=== PATIENT | male | born 1985 | race Caucasian/White ===

== ENCOUNTER 2017-11-09 18:36 | Emergency (ER) | payer SELFPAY ==
[~2017-11-09 18:36] MED LIST changes: -ASPI-1471 PO; -OLAN2.5T22 PO
--- NOTE | 2017-11-09 18:43 | ER Report ---
History and Physical Time Seen By MD: 18:43 (HIGINIO KNUTSON) HPI/ROS CHIEF COMPLAINT: Seizure, left leg numbness, left shoulder pain HISTORY OF PRESENT ILLNESS: 31-year-old male patient presents to emergency room with complaint of a seizure, left leg numbness, left shoulder pain. Patient states that he was at the [facility] home center where he is an inmate. He was walking and fell forward landing onto his left shoulder. He then had a seizure. Patient does not have a previous history of a seizure. Patient states that he felt like he was asleep for a long period of time and when he woke up he been having weird dreams. He states he has significant amounts of pain to the left shoulder. He states that he feels like his shoulder is burning. He states that he has pins and needles to approximately mid upper leg on the left side and then he has no sensation further down. He states that he takes Zyprexa for anxiety, he takes no other medications. He states that a few years ago he had a small stroke which resulted in him being in the hospital for approximately one week prior to discharge. He states that he was discharged with recommendation to take aspirin. He states that he does not do that. REVIEW OF SYSTEMS: Respiratory: No cough, no dyspnea. Cardiovascular: No chest pain, no palpitations. Gastrointestinal: No vomiting, no abdominal pain. Musculoskeletal: Patient states he has significant had of back pain. (HIGINIO KNUTSON) Allergies: Coded Allergies: codeine (Verified Adverse Reaction, Mild, vomiting, 10/14/16) Home Meds Reported Medications Aspirin (ASPIR 81) 81 Mg Tablet.dr, 81 MG PO QDAY, TAB 11/09/17 Olanzapine (ZYPREXA) 2.5 Mg Tablet, 2.5 MG PO QDAY 11/09/17 Past Medical/Surgical History Patient has a past medical history of CVA, migraines, chronic abdominal pain, reflux, finger fracture, substance abuse, alcohol abuse, ADHD, anxiety, depression. Patient has surgical history of appendectomy. Patient has a family medical history of diabetes, psychiatric problems. (HIGINIO KNUTSON) Reviewed Nurses Notes: Yes (HIGINIO KNUTSON) Hx Smoking: Yes (1/2 PPD) Smoking Status: Current: Every Day Smoker Exposure to Second Hand Smoke?: Yes Hx Substance Use Disorder: Yes (HISTORY MARIJUANNA, COCAIN, METHAMPHETAMINE USE. DENIES RECENT USAGE) Hx Alcohol Use: Yes (IN PAST, non currently) (HIGINIO KNUTSON) Constitutional Vital Sign - Last 24 Hours 11/09/17 11/09/17 11/09/17 11/09/17 18:38 19:00 19:15 19:30 Temp 98.7 Pulse 89 82 77 82 Resp 18 15 B/P (MAP) 129/68 127/85 (99) Pulse Ox 96 96 94 95 O2 Delivery Room Air 11/09/17 11/09/17 11/09/17 11/09/17 19:45 20:15 20:30 20:35 Pulse 77 81 74 ??? B/P (MAP) 139/128 (132) 11/09/17 11/09/17 11/09/17 11/09/17 22:20 22:30 22:35 22:50 Pulse ? B/P (MAP) ???/??? (1665) 11/09/17 11/09/17 11/09/17 11/09/17 23:00 23:05 23:20 23:29 Pulse ? B/P (MAP) ???/??? (1665) 136/79 (98) 11/09/17 11/09/17 11/10/17 23:35 23:50 00:08 Pulse 83 86 85 Resp 16 B/P (MAP) 132/85 (101) Pulse Ox 93 93 92 O2 Delivery Room Air Intake and Output 11/09/17 11/09/17 11/10/17 15:00 23:00 07:00 Intake Total 1000 ml Balance 1000 ml (SANDHYA SHEA MD) Physical Exam General Appearance: The patient is alert, has no immediate need for airway protection and no current signs of toxicity. Respiratory: Chest is non tender, lungs are clear to auscultation. Cardiac: regular rate and rhythm Gastrointestinal: Abdomen is soft and non tender, no masses, bowel sounds normal. Musculoskeletal: Neck: Neck is supple and non tender. Extremities have full range of motion and are non tender. Patient denied any sensation to the foot. Patient had pain to the left shoulder, no bruising or swelling noted. Skin: No rashes or lesions. Neuro: Patient is alert and oriented 4, cranial nerves II through XII grossly intact, patient had some weakness in the left arm, weakness in the left foot and leg. DIFFERENTIAL DIAGNOSIS: After history and physical exam differential diagnosis was considered for stroke, seizure, malingering. (HIGINIO KNUTSON) Medical Decision Making Data Points Result Diagram: 11/09/17191711/09/171917 Laboratory Hematology Test 11/09/17 19:18 Red Blood Count 4.37 M/uL (4.00-5.60) Mean Corpuscular Volume 91.1 fL (80.0-96.0) Mean Corpuscular Hemoglobin 31.5 pg (26.0-33.0) Mean Corpuscular Hemoglobin Concent 34.5 g/dL (32.0-36.0) Red Cell Distribution Width 14.4 % (11.5-14.5) Mean Platelet Volume 8.7 fL (7.2-11.1) Neutrophils (%) (Auto) 46.3 % (39.4-72.5) Lymphocytes (%) (Auto) 38.4 % (17.6-49.6) Monocytes (%) (Auto) 6.6 % (4.1-12.4) Eosinophils (%) (Auto) 7.4 % (0.4-6.7) Basophils (%) (Auto) 1.3 % (0.3-1.4) Nucleated RBC Relative Count (auto) 0.1 /100WBC Neutrophils # (Auto) 4.6 K/uL (2.0-7.4) Lymphocytes # (Auto) 3.8 K/uL (1.3-3.6) Monocytes # (Auto) 0.7 K/uL (0.3-1.0) Eosinophils # (Auto) 0.7 K/uL (0.0-0.5) Basophils # (Auto) 0.1 K/uL (0.0-0.1) Nucleated RBC Absolute Count (auto) 0.01 K/uL Sodium Level 145 mmol/L (137-145) Potassium Level 4.2 mmol/L (3.5-5.0) Chloride Level 103 mmol/L (98-107) Carbon Dioxide Level 30 mmol/L (22-30) Blood Urea Nitrogen 18 mg/dl (9-21) Creatinine 1.30 mg/dl (0.66-1.25) Glomerular Filtration Rate Calc > 60.0 Random Glucose 89 mg/dl (75-110) Calcium Level 9.2 mg/dl (8.4-10.2) Total Bilirubin 0.2 mg/dl (0.2-1.3) Aspartate Amino Transf (AST/SGOT) 32 U/L (0-35) Alanine Aminotransferase (ALT/SGPT) 23 U/L (0-56) Alkaline Phosphatase 38 U/L (0-126) Total Protein 7.3 g/dl (6.3-8.2) Albumin 4.1 g/dl (3.5-5.0) Chemistry Test 11/09/17 19:18 White Blood Count 9.9 k/uL (4.5-11.0) Red Blood Count 4.37 M/uL (4.00-5.60) Hemoglobin 13.7 g/dL (14.0-18.0) Hematocrit 39.8 % (42.0-52.0) Mean Corpuscular Volume 91.1 fL (80.0-96.0) Mean Corpuscular Hemoglobin 31.5 pg (26.0-33.0) Mean Corpuscular Hemoglobin Concent 34.5 g/dL (32.0-36.0) Red Cell Distribution Width 14.4 % (11.5-14.5) Platelet Count 272 K/uL (150-450) Mean Platelet Volume 8.7 fL (7.2-11.1) Neutrophils (%) (Auto) 46.3 % (39.4-72.5) Lymphocytes (%) (Auto) 38.4 % (17.6-49.6) Monocytes (%) (Auto) 6.6 % (4.1-12.4) Eosinophils (%) (Auto) 7.4 % (0.4-6.7) Basophils (%) (Auto) 1.3 % (0.3-1.4) Nucleated RBC Relative Count (auto) 0.1 /100WBC Neutrophils # (Auto) 4.6 K/uL (2.0-7.4) Lymphocytes # (Auto) 3.8 K/uL (1.3-3.6) Monocytes # (Auto) 0.7 K/uL (0.3-1.0) Eosinophils # (Auto) 0.7 K/uL (0.0-0.5) Basophils # (Auto) 0.1 K/uL (0.0-0.1) Nucleated RBC Absolute Count (auto) 0.01 K/uL Glomerular Filtration Rate Calc > 60.0 Calcium Level 9.2 mg/dl (8.4-10.2) Total Bilirubin 0.2 mg/dl (0.2-1.3) Aspartate Amino Transf (AST/SGOT) 32 U/L (0-35) Alanine Aminotransferase (ALT/SGPT) 23 U/L (0-56) Alkaline Phosphatase 38 U/L (0-126) Total Protein 7.3 g/dl (6.3-8.2) Albumin 4.1 g/dl (3.5-5.0) (SANDHYA SHEA MD) EKG/Imaging Imaging CT Head without contrast Indication: Weakness and numbness to left side. Fall. Comparison: 10/27/2015. Technique: Axial CT images were obtained through the brain from the skull base to the vertex without administration of IV contrast. Reformatted coronal and sagittal images were also obtained. One of the following dose optimization techniques was utilized in the performance of this exam: automated exposure control; adjustment of the mA and/or kV according to the patient's size; or use of an iterative reconstruction technique. Specific details can be referenced in the facility's radiology CT exam operational policy. Findings: No evidence of mass, mass effect, or midline shift. No acute intracranial hemorrhage or acute territorial infarction. No extra-axial fluid collection or hydrocephalus. No abnormal density. Becerra/white matter differentiation appears normal. Bony structures show no fractures or lesions. The visualized paranasal sinuses and mastoid air cells are clear. IMPRESSION: 1. No acute intracranial abnormality. Report Dictated By: Hugh Alexis at 11/09/2017 7:56 PM Report E-Signed By: Hugh Alexis at 11/09/2017 8:00 PM SHOULDER MIN 2 VIEWS LEFT Indication: Left shoulder pain after fall. Comparison: Unavailable Findings: 2 views of the left shoulder. No discrete fracture identified. However at the humeral neck there is some faint sclerosis without discrete fracture line. This is not well seen on the scapular Y view. No indication of dislocation. No bony l esions. AC joint appears intact without significant degenerative changes. Soft tissues unremarkable. IMPRESSION: 1. The femoral neck area does show a faint sclerosis without discrete fracture line. This not seen on the scapular Y view. This may represent degenerative changes. On this limited exam cannot exclude a nondisplaced fracture. Suggest correlation to area pain. If there still clinical concern, a dedicated 4 view of the left shoulder x-ray is suggested. I called report to HIGINIO KNUTSON at 11/09/2017 8:20 PM. Report Dictated By: Hugh Alexis at 11/09/2017 7:50 PM Report E-Signed By: Hugh Alexis at 11/09/2017 8:21 PM INDICATION: repeat, 4 views needed possible non-displaced fracture EXAM DATE: 11/09/2017 8:21 PM COMPARISON: Same-day radiographs. FINDINGS: 4 views of the left shoulder. Mineralization is normal. No acute alignment abnormality or fracture. Moderate osteoarthrosis with osteophyte production near the humeral head neck junction that likely accounts for previously seen sclerotic line. Soft tissues are unremarkable. IMPRESSION: Moderate osteoarthrosis with no acute osseous abnormality of the left shoulder. Report Dictated By: Lázaro Emmanuel MD at 11/09/2017 10:25 PM Report E-Signed By: Lázaro Emmanuel MD at 11/09/2017 10:29 PM (HIGINIO KNUTSON) Imaging EXAMINATION: MRA of the [place] HISTORY: Left-sided weakness. COMPARISON: CT head and brain MRI from 11/09/2017. TECHNIQUE: 3D [id number] angiography was performed in the axial plane on the [place] without IV gadolinium. The exam was tailored for assessment of the [place] only. Only limited sequences were obtained of the rest of the brain. FINDINGS: The exam is limited by patient motion artifact. Carotids: Negative. Anterior/posterior communicating arteries: Patent anterior communicating artery. No definite posterior communicating artery on either side. Anterior cerebral arteries: Negative. Middle cerebral arteries: Negative. Posterior cerebral arteries: Negative. Intracranial vertebral arteries: Left vertebral artery is dominant with a slightly smaller right vertebral artery. Both vertebral arteries contribute to the basilar artery. Basilar artery: Negative. PICA/AICA/SCA: Negative. Non-angiographic Findings: None significant. IMPRESSION: Normal MRA of the [place]. Report Dictated By: Brittaney Calvillo MD at 11/09/2017 11:33 PM EXAMINATION: MRI brain without IV contrast HISTORY: Weakness of left arm and leg. COMPARISON: CT head and head MRA from 11/09/2017. TECHNIQUE: Multi-planar, multi-sequence brain MRI was performed without IV contrast. FINDINGS: Brain volume: Normal. Sagittal midline structures: Normal. Ventricles: Normal. Acute ischemic changes: No diffusion restriction present to suggest acute ischemia. Hemorrhage: No acute hemorrhage or hemosiderin staining. Masses/edema: None. Becerra-white: Negative. White matter: No focal white matter signal abnormality or lesion. Vessels: Normal. Extra-axial: None. Calvarium/scalp: Negative. Skull base: Negative. Visualized sinuses/orbits: Negative. Visualized upper neck: Negative. IMPRESSION: Normal noncontrast brain MRI without intracranial mass lesion, acute infarct or hemorrhage. Report Dictated By: Brittaney Calvillo MD at 11/09/2017 11:28 PM (SANDHYA SHEA MD) ED Course/Re-evaluation ED Course Patient was admitted and examined, history and physical were obtained. The differential diagnoses were considered. On examination patient had strength in the left arm, however did appear to be weaker than the right arm. Extra ocular movements were totally normal. Patient is complaining significant amounts of left shoulder pain in did have tenderness to palpation. An x-ray was done, which radiologist felt he may have some arthritis or a nondisplaced fracture and recommended a 4 view of the shoulder. I was done which was negative for fracture. Patient did receive 4 mg of morphine. He states that did not help with his pain and he received 15 mg of Toradol and 30 mg Norflex. Patient states he still having shoulder pain as well as muscle spasms in his back. A CBC, CMP were done which were negative. A CT scan of the head was done and the patella stroke was initiated. Patient was evaluated by neurologist at [facility]. He did discuss his findings with me. He states that he felt this was very strange and told me that he had looked up records from the patient being evaluated at [place] and the patient refused at that was him. He states that most been his brother. The neurologist found that to be very odd statement. He recommended doing an MRI and MRA of the brain. That was done and while waiting for the res ults I did turn the case over to Dr. Shea. Turned Over 11/09/2017 11:08:01 pm The care of the patient was turned over to Dr. Shea. Higinio WILLSON I authorize my typed signature that I authenticated this report. (HIGINIO KNUTSON) ED Course The patient's MRI and MRA did not show any acute problems. We were able to pull old records from [facility] showing he has had extensive evaluations and had no sign of epilepsy. These seem to be stress related seizures type activity. The recommendation was for psychiatric evaluation at that time. I reviewed this with the patient and he was not very happy with me. He says he needs an MRI of his shoulder. We discussed that he has contusion or strain of the shoulder and he can use Ibuprofen or Tylenol as needed for pain and then follow-up with orthopedic surgery as needed for ongoing pain and they can evaluate later and determine if an MRI is needed. We will be discharging back to the [facility] at this time. Decision to Disposition Date: Nov 09, 2017 Decision to Disposition Time: 23:56 (SANDHYA SHEA MD) Depart Departure Latest Vital Signs Vital Signs Date Time Temp Pulse Resp B/P (MAP) Pulse Ox O2 Delivery O2 Flow Rate FiO2 11/10/17 00:08 85 16 132/85 (101) 92 Room Air 11/09/17 18:38 98.7 (SANDHYA SHEA MD) Impression: Primary Impression: Contracture, left shoulder Additional Impressions: Numbness in left leg Psychogenic nonepileptic seizure Condition: Condition Unchanged Disposition: [facility] TO PRISON/CORRECTIONAL F Patient Instructions: Contusion in Adults (ED), Nonepileptic Seizures (ED) Additional Instructions: You can use Tylenol or Ibuprofen for pain. You will need to follow-up with psychiatry for further evaluation of non- epileptic seizures that are brought on by stress. You can see orthopedic surgery as an outpatient if the shoulder continues to bother you. Problem Qualifiers HIGINIO KNUTSON Nov 09, 2017 18:43 SANDHYA SHEA MD Nov 10, 2017 00:00
[2017-11-09] MEDS ORDERED: ASPI-1471 PO (18:48)
[2017-11-09] MEDS ORDERED: OLAN2.5T22 PO (18:48)
[2017-11-09] MEDS ORDERED: NS(*) 0.9% 1000 ML BAG 1,000 ML IV ONE (18:55)
[2017-11-09] MEDS ORDERED: MORPHINE 4 MG/ML SDV IVP ONE (18:55)
[2017-11-09 19:41] LABS: PLATELET COUNT, AUTOMATED 272 K/uL (150-450)
--- NOTE | 2017-11-09 20:04 | RADIOLOGY IMAGING REPORT ---
FACILITY: [facility] PATIENT NAME: Lázaro Washburn : 1985 MR: [id number] V: [id number] EXAM DATE: ORDERING PHYSICIAN: ANITA KNUTSON TECHNOLOGIST: Location: [facility] Patient: Lázaro Washburn : 1985 Visit/Account:[id number] Date of Sevice: 11/09/2017 CT Head without contrast Indication: Weakness and numbness to left side. Fall. Comparison: 10/27/2015. Technique: Axial CT images were obtained through the brain from the skull base to the vertex without administration of IV contrast. Reformatted coronal and sagittal images were also obtained. One of the following dose optimization techniques was utilized in the performance of this exam: autom ated exposure control; adjustment of the mA and/or kV according to the patient's size; or use of an i terative reconstruction technique. Specific details can be referenced in the facility's radiology CT exam operational policy. Findings: No evidence of mass, mass effect, or midline shift. No acute intracranial hemorrhage or acute territorial infarction. No extra-axial fluid collection or hydrocephalus. No abnormal density. Becerra/white matter differentiat ion appears normal. Bony structures show no fractures or lesions. The visualized paranasal sinuses and mastoid air cells are clear. IMPRESSION: 1. No acute intracranial abnormality. Report Dictated By: Hugh Alexis at 11/09/2017 7:56 PM Report E-Signed By: Hugh Alexis at 11/09/2017 8:00 PM WSN:[id number]
[2017-11-09] MEDS ORDERED: ORPHENADRINE 60MG/2ML INJ IVP ONE (20:20)
[2017-11-09] MEDS ORDERED: KETOROLAC 15 MG/ML VIAL IVP ONE (20:20)
--- NOTE | 2017-11-09 20:24 | RADIOLOGY IMAGING REPORT ---
FACILITY: [facility] PATIENT NAME: Lázaro Washburn : 1985 MR: [id number] V: [id number] EXAM DATE: ORDERING PHYSICIAN: ANITA KNUTSON TECHNOLOGIST: Location: [facility] Patient: Lázaro Washburn : 1985 Visit/Account:[id number] Date of Sevice: 11/09/2017 ADDENDUM #1 There is a mistake in the impression. The first line should read the humeral neck area, not the femor al area. Report Dictated By: Hugh Alexis at 11/09/2017 10:49 PM Report E-Signed By: Hugh Alexis at 11/09/2017 10:50 PM ORIGINAL REPORT SHOULDER MIN 2 VIEWS LEFT Indication: Left shoulder pain after fall. Comparison: Unavailable Findings: 2 views of the left shoulder. No discrete fracture identified. However at the humeral neck there is s ome faint sclerosis without discrete fracture line. This is not well seen on the scapular Y view. No indication of dislocation. No bony lesions. AC joint appears intact without significant degenerative changes. Soft tissues unremarkable. IMPRESSION: 1. The femoral neck area does show a faint sclerosis without discrete fracture line. This not seen on the scapular Y view. This may represent degenerative changes. On this limited exam cannot exclude a nondisplaced fracture. Suggest correlation to area pain. If there still clinical concern, a dedicated 4 view of the left shoulder x-ray is suggested. I called report to ANITA KNUTSON at 11/09/2017 8:20 PM. Report Dictated By: Hugh Alexis at 11/09/2017 7:50 PM Report E-Signed By: Hugh Alexis at 11/09/2017 8:21 PM WSN:[id number]
[2017-11-09] MEDS ORDERED: LORazepam 2 MG/ML VIAL IVP ONE ×2 (21:00→22:30)
[2017-11-09] MEDS ORDERED: KETAMINE HCL-NS 50 MG/5 ML SYR IVP ONE (22:30)
--- NOTE | 2017-11-09 22:32 | RADIOLOGY IMAGING REPORT ---
FACILITY: [facility] PATIENT NAME: Lázaro Washburn : 1985 MR: [id number] V: [id number] EXAM DATE: ORDERING PHYSICIAN: ANITA KNUTSON TECHNOLOGIST: Location: [facility] Patient: Lázaro Washburn : 1985 Visit/Account:[id number] Date of Sevice: 11/09/2017 INDICATION: repeat, 4 views needed possible non-displaced fracture EXAM DATE: 11/09/2017 8:21 PM COMPARISON: Same-day radiographs. FINDINGS: 4 views of the left shoulder. Mineralization is normal. No acute alignment abnormality or fracture. Moderate osteoarthrosis with osteophyte production near the humeral head neck junction that likely a ccounts for previously seen sclerotic line. Soft tissues are unremarkable. IMPRESSION: Moderate osteoarthrosis with no acute osseous abnormality of the left shoulder. Report Dictated By: Lázaro Emmanuel MD at 11/09/2017 10:25 PM Report E-Signed By: Lázaro Emmanuel MD at 11/09/2017 10:29 PM WSN:[id number]
--- NOTE | 2017-11-09 23:41 | RADIOLOGY IMAGING REPORT ---
FACILITY: [facility] PATIENT NAME: Lázaro Washburn : 1985 MR: [id number] V: [id number] EXAM DATE: ORDERING PHYSICIAN: ANITA KNUTSON TECHNOLOGIST: Location: Patient: Lázaro Washburn : 1985 Visit/Account:[id number] Date of Sevice: 11/09/2017 EXAMINATION: MRI brain without IV contrast HISTORY: Weakness of left arm and leg. COMPARISON: CT head and head MRA from 11/09/2017. TECHNIQUE: Multi-planar, multi-sequence brain MRI was performed without IV contrast. FINDINGS: Brain volume: Normal. Sagittal midline structures: Normal. Ventricles: Normal. Acute ischemic changes: No diffusion restriction present to suggest acute ischemia. Hemorrhage: No acute hemorrhage or hemosiderin staining. Masses/edema: None. Becerra-white: Negative. White matter: No focal white matter signal abnormality or lesion. Vessels: Normal. Extra-axial: None. Calvarium/scalp: Negative. Skull base: Negative. Visualized sinuses/orbits: Negative. Visualized upper neck: Negative. IMPRESSION: Normal noncontrast brain MRI without intracranial mass lesion, acute infarct or hemorrhage. Report Dictated By: Brittaney Calvillo MD at 11/09/2017 11:28 PM Report E-Signed By: Brittaney Calvillo MD at 11/09/2017 11:37 PM WSN:[id number]
--- NOTE | 2017-11-09 23:41 | RADIOLOGY IMAGING REPORT ---
FACILITY: [facility] PATIENT NAME: Lázaro Washburn : 1985 MR: [id number] V: [id number] EXAM DATE: ORDERING PHYSICIAN: ANITA KNUTSON TECHNOLOGIST: Location: [facility] Patient: Lázaro Washburn : 1985 Visit/Account:[id number] Date of Sevice: 11/09/2017 EXAMINATION: MRA of the [place] HISTORY: Left-sided weakness. COMPARISON: CT head and brain MRI from 11/09/2017. TECHNIQUE: 3D [id number]-gq-[id number] angiography was performed in the axial plane on the [place] without IV dax olinium. The exam was tailored for assessment of the [place] only. Only limited sequences were [place] of the rest of the brain. FINDINGS: The exam is limited by patient motion artifact. Carotids: Negative. Anterior/posterior communicating arteries: Patent anterior communicating artery. No definite posterio r communicating artery on either side. Anterior cerebral arteries: Negative. Middle cerebral arteries: Negative. Posterior cerebral arteries: Negative. Intracranial vertebral arteries: Left vertebral artery is dominant with a slightly smaller right vert ebral artery. Both vertebral arteries contribute to the basilar artery. Basilar artery: Negative. PICA/AICA/SCA: Negative. Non-angiographic Findings: None significant. IMPRESSION: Normal MRA of the [place]. Report Dictated By: Brittaney Calvillo MD at 11/09/2017 11:33 PM Report E-Signed By: Brittaney Calvillo MD at 11/09/2017 11:37 PM WSN:[id number]
[2017-11-10 00:08] VITALS: BP 132/85
== END 2017-11-10 00:12 ==
LOC: ER 18:46
DX: M24.512 Contracture, left shoulder (principal); R20.0 Anesthesia of skin; G40.409 Other generalized epilepsy and epileptic syndromes, not intractable, without status epilepticus
CPT/HCPCS: 70450; 70544; 70551; 73030; 85025; 96361; 96374; 96375; 99285; J1885; J2060; J2270; J2360; J3490; J7030; 82040; 82247; 82310; 82374; 82435; 82565; 82947; 84075; 84132; 84155; 84295; 84450; 84460; 84520

== ENCOUNTER → 2017-11-09 | Outpatient (CLI) | payer SELFPAY ==
[~2017-11-09] MED LIST: AMPH10TA20 PO; AMPH30TA10 PO; AMPH30TA9 PO; ASPI-1471 PO; BUS10 PO; BUS5 PO; CEP500 PO; CEPH250C37 PO; CIPR-326 PO; CIT20 PO; DIA10 PO; DIA5 PO; DICY10CA62 PO; HYD2 PO; HYDR-3074 PO; HYDR4TAB59 PO; HYDR4TAB75 PO; LOR5 PO; OLAN2.5T22 PO; OMEP40CA45 PO; OMEP40CA79 PO; ONDA4TAB PO; OXYC-763 PO; PER PO; PROM-110 PO; RAN150 PO; SUCR1ORA13 PO; TRAM-420 PO
== END ==
LOC: AMB 18:08
PROVIDERS: ATTEND Nurse Practitioner
DX: R56.9 Unspecified convulsions (principal); R53.81 Other malaise
CPT/HCPCS: A0425; A0427

== ENCOUNTER 2017-11-11 10:45 | Emergency (ER) | payer SELFPAY ==
[2017-11-11 11:15] LABS: PLATELET COUNT, AUTOMATED 264 K/uL (150-450)
[2017-11-11] MEDS ORDERED: ORPHENADRINE 60MG/2ML INJ IM ONE (11:20)
[2017-11-11] MEDS ORDERED: MAGNESIUM SUL/D5W* 1 GM/100 ML 100 ML IVPB ONE (11:20)
--- NOTE | 2017-11-11 11:45 | ER Report ---
History and Physical Time Seen By MD: 11:02 Hx. of Stated Complaint: SEIZURE AT [facility]ED [facility]URSING. HPI/ROS CHIEF COMPLAINT: "Seizure" sent from [facility]. HISTORY OF PRESENT ILLNESS: Patient is a 31-year-old male who is currently incarcerated at [facility]. He is been seen multiple times in multiple centers for "seizure activity". Most recently he was seen in the emergency department here a few days ago for "seizure activity". Through a electronic medical record search we're able to determine that the patient has nonepileptic seizures or "pseudoseizures" this was determined through medical record search I will attach a note from Dr. Woody who saw the patient just a few days ago. ED Course The patient's MRI and MRA did not show any acute problems. We were able to pull old records from [facility] showing he has had extensive evaluations and had no sign of epilepsy. These seem to be stress related seizures type activity. The recommendation was for psychiatric evaluation at that time. I reviewed this with the patient and he was not very happy with me. He says he needs an MRI of his shoulder. We discussed that he has contusion or strain of the shoulder and he can use Ibuprofen or Tylenol as needed for pain and then follow-up with orthopedic surgery as needed for ongoing pain and they can evaluate later and determine if an MRI is needed. We will be discharging back to the [facility] at this time. Decision to Disposition Date: Nov 09, 2017 Decision to Disposition Time: 23:56 (SANDHYA ATKINSON MD) Patient presents today and had shaking well in the emergency department. The shaking was not tonic clonic or "seizure-like". I attempted a sternal rub and the patient had voluntary withdrawal. When the patient came to a few minutes later there is no evidence of a postictal state and the patient recalls hearing what was going on in the room during his episode. REVIEW OF SYSTEMS: Constitutional: No fever, no chills. Eyes: No discharge. ENT: No sore throat. Cardiovascular: No chest pain, no palpitations. Respiratory: No cough, no shortness of breath. Gastrointestinal: No abdominal pain, no vomiting. Genitourinary: No hematuria. Musculoskeletal: Body aches Skin: No rashes. Neurological: No headache. Allergies: Coded Allergies: codeine (Verified Adverse Reaction, Mild, vomiting, 10/14/16) Home Meds Reported Medications Aspirin (ASPIR 81) 81 Mg Tablet.dr, 81 MG PO QDAY, TAB 11/09/17 Olanzapine (ZYPREXA) 2.5 Mg Tablet, 2.5 MG PO QDAY 11/09/17 Past Medical/Surgical History Patient has a past medical history of "CVA", migraines, chronic abdominal pain, reflux, finger fracture, substance abuse, alcohol abuse, ADHD, anxiety, depression. Patient has surgical history of appendectomy. Patient has a family medical history of diabetes, psychiatric problems. Hx Smoking: Yes (1/2 PPD) Smoking Status: Current: Every Day Smoker Exposure to Second Hand Smoke?: Yes Hx Substance Use Disorder: Yes (HISTORY MARIJUANNA, COCAIN, METHAMPHETAMINE USE. DENIES RECENT USAGE) Hx Alcohol Use: Yes (IN PAST, non currently) Constitutional Vital Sign - Last 24 Hours 11/11/17 11/11/17 11/11/17 11/11/17 10:54 11:00 11:15 11:30 Temp 99.0 Pulse 101 87 88 Resp 18 B/P (MAP) 138/102 140/69 (92) 129/34 (65) 136/81 (99) Pulse Ox 95 82 95 O2 Delivery Room Air 11/11/17 11/11/17 11:45 12:00 Pulse 84 B/P (MAP) 117/68 (84) 105/53 (70) Physical Exam General/Constitutional: Patient is awake, alert, nontoxic and in no acute respiratory distress. Head: Normocephalic and atraumatic. Eyes: Conjunctival clear, Pupils are equal and reactive to light. Extraocular muscles are intact and symmetrical. Sclera are clear and anicteric. Ears:External canals are clear. Tympanic membranes are clear with normal landmarks and light reflex. Nares: No rhinorrhea or bleeding. Turbinates are pink and moist. Oropharyngeal: Mucous membranes are moist. There is no pharyngeal erythema or exudate. There are no palatal petechiae. Uvula is midline and symmetrical. Neck: Supple, no adenopathy. Cardiovascular: Heart is regular rate and rhythm without audible murmurs, rubs or gallops. Pulmonary: Lungs are clear to auscultation bilaterally. There are no wheezes, rales, or rhonchi. Chest rise is symmetrical Abdomen: Soft, nontender, no guarding or peritoneal signs. Extremities: No gross deformities, No peripheral cyanosis. Able to move all 4 extremities. Neuro: Alert and oriented X3, Cranial nerves 2 thru 12 are intact and symmetrical. Skin: No rashes, skin is warm dry and well perfused. Medical Decision Making Data Points Result Diagram: 11/11/17 1052 11/11/17 1052 Laboratory Hematology Test 11/11/17 10:52 Red Blood Count 4.17 M/uL (4.00-5.60) Mean Corpuscular Volume 92.5 fL (80.0-96.0) Mean Corpuscular Hemoglobin 31.7 pg (26.0-33.0) Mean Corpuscular Hemoglobin Concent 34.3 g/dL (32.0-36.0) Red Cell Distribution Width 14.3 % (11.5-14.5) Mean Platelet Volume 8.6 fL (7.2-11.1) Neutrophils (%) (Auto) 52.2 % (39.4-72.5) Lymphocytes (%) (Auto) 30.1 % (17.6-49.6) Monocytes (%) (Auto) 6.6 % (4.1-12.4) Eosinophils (%) (Auto) 9.9 % (0.4-6.7) Basophils (%) (Auto) 1.2 % (0.3-1.4) Nucleated RBC Relative Count (auto) 0.0 /100WBC Neutrophils # (Auto) 4.3 K/uL (2.0-7.4) Lymphocytes # (Auto) 2.5 K/uL (1.3-3.6) Monocytes # (Auto) 0.5 K/uL (0.3-1.0) Eosinophils # (Auto) 0.8 K/uL (0.0-0.5) Basophils # (Auto) 0.1 K/uL (0.0-0.1) Nucleated RBC Absolute Count (auto) 0.00 K/uL Sodium Level 144 mmol/L (137-145) Potassium Level 3.7 mmol/L (3.5-5.0) Chloride Level 106 mmol/L (98-107) Carbon Dioxide Level 25 mmol/L (22-30) Blood Urea Nitrogen 14 mg/dl (9-21) Creatinine 0.90 mg/dl (0.66-1.25) Glomerular Filtration Rate Calc > 60.0 Random Glucose 110 mg/dl (75-110) Calcium Level 9.2 mg/dl (8.4-10.2) Magnesium Level 1.6 mg/dl (1.7-2.2) Total Bilirubin 0.3 mg/dl (0.2-1.3) Aspartate Amino Transf (AST/SGOT) 32 U/L (0-35) Alanine Aminotransferase (ALT/SGPT) 30 U/L (0-56) Alkaline Phosphatase 35 U/L (0-126) Total Protein 7.2 g/dl (6.3-8.2) Albumin 4.1 g/dl (3.5-5.0) Chemistry Test 11/11/17 10:52 White Blood Count 8.3 k/uL (4.5-11.0) Red Blood Count 4.17 M/uL (4.00-5.60) Hemoglobin 13.2 g/dL (14.0-18.0) Hematocrit 38.5 % (42.0-52.0) Mean Corpuscular Volume 92.5 fL (80.0-96.0) Mean Corpuscular Hemoglobin 31.7 pg (26.0-33.0) Mean Corpuscular Hemoglobin Concent 34.3 g/dL (32.0-36.0) Red Cell Distribution Width 14.3 % (11.5-14.5) Platelet Count 264 K/uL (150-450) Mean Platelet Volume 8.6 fL (7.2-11.1) Neutrophils (%) (Auto) 52.2 % (39.4-72.5) Lymphocytes (%) (Auto) 30.1 % (17.6-49.6) Monocytes (%) (Auto) 6.6 % (4.1-12.4) Eosinophils (%) (Auto) 9.9 % (0.4-6.7) Basophils (%) (Auto) 1.2 % (0.3-1.4) Nucleated RBC Relative Count (auto) 0.0 /100WBC Neutrophils # (Auto) 4.3 K/uL (2.0-7.4) Lymphocytes # (Auto) 2.5 K/uL (1.3-3.6) Monocytes # (Auto) 0.5 K/uL (0.3-1.0) Eosinophils # (Auto) 0.8 K/uL (0.0-0.5) Basophils # (Auto) 0.1 K/uL (0.0-0.1) Nucleated RBC Absolute Count (auto) 0.00 K/uL Glomerular Filtration Rate Calc > 60.0 Calcium Level 9.2 mg/dl (8.4-10.2) Magnesium Level 1.6 mg/dl (1.7-2.2) Total Bilirubin 0.3 mg/dl (0.2-1.3) Aspartate Amino Transf (AST/SGOT) 32 U/L (0-35) Alanine Aminotransferase (ALT/SGPT) 30 U/L (0-56) Alkaline Phosphatase 35 U/L (0-126) Total Protein 7.2 g/dl (6.3-8.2) Albumin 4.1 g/dl (3.5-5.0) ED Course/Re-evaluation ED Course 11/11/2017 11:48:18 am we have completed a medical workup which showed slightly low magnesium which we will replace. Patient complaining of muscle spasm which we will give IM Norflex. Patient's history physical exam and workup consistent with nonepileptic seizures. Once treatment and has completed we will discharge back to [facility]. Decision to Disposition Date: Nov 11, 2017 Decision to Disposition Time: 12:25 Depart Departure Latest Vital Signs Vital Signs Date Time Temp Pulse Resp B/P (MAP) Pulse Ox O2 Delivery O2 Flow Rate FiO2 11/11/17 12:00 84 105/53 (70) 11/11/17 11:30 95 11/11/17 10:54 99.0 18 Room Air Impression: Primary Impression: Nonepileptic episode Condition: Improved Disposition: [facility] TO SKILLED NURSING/CORRECTIONAL F Patient Instructions: Nonepileptic Seizures (ED) ABRAM FLORES MD Nov 11, 2017 11:45
[2017-11-11 12:00] VITALS: BP 105/53
== END 2017-11-11 12:09 ==
LOC: ER 11:02
DX: R56.9 Unspecified convulsions (principal)
CPT/HCPCS: 83735; 85025; 96365; 96372; 99284; J2360; J3475; 82040; 82247; 82310; 82374; 82435; 82565; 82947; 84075; 84132; 84155; 84295; 84450; 84460; 84520

== ENCOUNTER → 2017-11-11 | Outpatient (CLI) | payer SELFPAY ==
[~2017-11-11] MED LIST changes: +ASPI-1471 PO; +OLAN2.5T22 PO
== END ==
LOC: AMB 10:27
PROVIDERS: ATTEND Nurse Practitioner
DX: R56.9 Unspecified convulsions (principal); M54.9 Dorsalgia, unspecified; M79.631 Pain in right forearm
CPT/HCPCS: A0425; A0427